=== PATIENT | female | born 1980 | race Caucasian/White ===

== ENCOUNTER 2017-03-22 15:45 | Emergency (ER) | payer OTHER ==
[~2017-03-22] VITALS: Ht 177.8 cm; Wt 120.0 kg
[2017-03-22 15:46] VITALS: BP 191/107; PULSE 95; RESP 23; TEMP 97.9; O2SAT 98
--- NOTE | 2017-03-22 15:52 | PD ---
Physical Exam Time Seen by Provider: 15:50 Narrative 37 y/o female who is 10 weeks presents with 1.5 hrs of vaginal bleeding. Denies pain. Vital signs reviewed. Seen at triage desk. Awaiting bed placement. Data Data Last Documented VS Vital Signs Date Time Temp Pulse Resp B/P Pulse Ox O2 Delivery O2 Flow Rate FiO2 03/22/17 15:46 97.9 95 23 191/107 98 MDM Medical Record Reviewed: Yes Supervised Visit with ALEKSEY: Willis Adkins Mar 22, 2017 15:51
[2017-03-22 16:15] VITALS: BP 138/95
--- NOTE | 2017-03-22 16:29 | PD ---
HPI Chief Complaint: Related Problem Time Seen by Provider: 16:27 Travel History International Travel<30 days: No Contact w/Intl Traveler<30days: No Traveled to known affect area: No History of Present Illness HPI 37-year-old 10 week by ultrasound at 7 weeks female presents to the ED for evaluation of 2 hour history of vaginal bleeding. Patient denies abdominal pain, dysuria, back pain. She states that she was standing up at work when she felt a warm gush, went to the bathroom and had bright red blood in her panties. Unsure of her blood type. States she's never had a RhoGAM shot. LMP 01/09/17. PFSH Past Medical History Hypertension: Yes Respiratory: Yes (ASTHMA) Influenza Vaccination: No ?: LMP: 01/09/2017 : 5 Para: 4 Past Surgical History Other Surgery: Yes (vein striping) Social History Alcohol Use: No Tobacco Use: No Substance Use: No Allergies-Medications (Allergen,Severity, Reaction): Coded Allergies: Amoxicillin (Verified Allergy, Mild, Rash, 03/22/17) Erythromycin (Verified Allergy, Unknown, Rash, 03/22/17) Penicillin (Verified Allergy, Unknown, Rash, 03/22/17) Reported Meds & Prescriptions Reported Meds & Active Scripts Active Macrobid (Nitrofurantoin Monoh/Nitrofur Macro) 100 Mg Cap 100 Mg PO BID 7 Days Review of Systems Except as stated in HPI: all other systems reviewed are Neg Physical Exam Narrative GENERAL: Well-nourished, well-developed obese white female in no acute distress. SKIN: Focused skin assessment warm/dry. HEAD: Normocephalic. EYES: No scleral icterus. No injection or drainage. NECK: Supple, trachea midline. No JVD or lymphadenopathy. CARDIOVASCULAR: Regular rate and rhythm without murmurs, gallops, or rubs. RESPIRATORY: Breath sounds equal bilaterally. No accessory muscle use. GASTROINTESTINAL: Abdomen soft, protuberant, non-tender, nondistended. Active bowel sounds. MUSCULOSKELETAL: No cyanosis, or edema. BACK: Nontender without obvious deformity. No CVA tenderness. Data Data Last Documented VS Vital Signs Date Time Temp Pulse Resp B/P Pulse Ox O2 Delivery O2 Flow Rate FiO2 03/22/17 16:15 138/95 03/22/17 15:46 97.9 95 23 98 Orders Beta Hcg (Quant/Titer) (03/22/17 16:26) Urinalysis - C+S If Indicated (03/22/17 16:26) Ed Urine Pregnancytest Poc (03/22/17 16:26) Ed Poc Ultrasound (03/22/17 16:26) Complete Rh (03/22/17 16:53) Labs Laboratory Tests Test 03/22/17 16:55 Urine Color YELLOW Urine Turbidity CLEAR Urine pH 6.0 Urine Specific [place] 1.018 Urine Protein TRACE mg/dL Urine Glucose (UA) NEG mg/dL Urine Ketones 10 mg/dL Urine Occult Blood MOD Urine Nitrite NEG Urine Bilirubin NEG Urine Urobilinogen LESS THAN 2.0 MG/DL Urine Leukocyte Esterase TRACE Urine RBC LESS THAN 1 /hpf Urine WBC 2 /hpf Urine Squamous Epithelial 1 /hpf Cells Urine Bacteria RARE /hpf Urine Hyaline Casts 3 /lpf Urine Mucus FEW /lpf Microscopic Urinalysis Comment CULT NOT INDICATED Human Chorionic Gonadotropin, 75682 MIU/ML Quant Blood Type A POSITIVE Rho(D) Type POSITIVE MDM Medical Decision Making Medical Screen Exam Complete: Yes Emergency Medical Condition: Yes Differential Diagnosis Vaginal bleeding in first trimester versus threatened versus UTI versus Narrative Course 37-year-old 10 week by ultrasound at 7 weeks female presents to the ED for evaluation of 2 hour history of vaginal bleeding. Patient denies abdominal pain, dysuria, back pain. She states that she was standing up at work when she felt a warm gush, went to the bathroom and had bright red blood in her panties. Unsure of her blood type. States she's never had a RhoGAM shot. LMP 4. Vitals reviewed. Physical exam reveals an obese female in NAD. Abdominal exam is completely benign. Bedside ultrasound reveals single, active intrauterine with heart rate in the 160s. Beta hCG 02/25/07. Blood type A positive. UA trace leukocyte esterase, rare bacteria. This is vaginal bleeding in the first trimester and asymptomatic bacteriuria. Patient' s treated with Macrobid 100 mg twice a day 7 days. She is instructed to return to the ED or her burner shaft for repeat beta hCG in 48-72 hours. Discussed the possibility of spontaneous and the need to return to the ED sooner should her symptoms worsen. Patient indicated understanding of instructions and is agreeable to the care plan. She is stable and discharged home. Procedures Procedure Narrative Emergency Department Pelvic ultrasound was performed with patient consent. The curvilinear probe was used in the transverse and sagittal views within the suprapubic region revealing active, single intrauterine . heart rate was 160s. Diagnosis Primary Impression: Vaginal bleeding in patient at less than 20 weeks gestation Additional Impression: Asymptomatic bacteriuria during in first trimester Referrals: Clinical Technologist Patient Instructions: General Instructions, Threatened Miscarriage (ED), Urinary Tract Infection in (ED) Additional Instructions: Rest, hydrate. Blood type is A+. [place] [address]. Take antibiotic as prescribed. Follow-up in 48-72 hours for redraw of beta hCG. Return to the ED for worsening symptoms or any urgent or emergent medical condition. Scripts Nitrofurantoin Monohydrate Macrocrystals (Macrobid)100 Mg [id number] Mg PO BID 7 Days Ref 0 Prov:Amairani Waller MD 03/22/17 Disposition: 01 DISCHARGE HOME Condition: Stable Aide Alvarado Mar 22, 2017 16:29
--- NOTE | 2017-03-22 16:59 | PD ---
Data Data Last Documented VS Vital Signs Date Time Temp Pulse Resp B/P Pulse Ox O2 Delivery O2 Flow Rate FiO2 03/22/17 16:15 138/95 03/22/17 15:46 97.9 95 23 98 Orders Beta Hcg (Quant/Titer) (03/22/17 16:26) Urinalysis - C+S If Indicated (03/22/17 16:26) Ed Urine Pregnancytest Poc (03/22/17 16:26) Ed Poc Ultrasound (03/22/17 16:26) Complete Rh (03/22/17 16:53) MDM Supervised Visit with ALEKSEY: Yes Narrative Course I, Dr. Waller, have reviewed the advance practice practioner's documentation and am in agreement, met with the patient face to face, made the diagnosis, and the medical decision making was done by me. *My assessment and Findings: 35-year-old at 10 weeks 2 days here with complaint of a single episode of bright red blood per vagina. Patient stood up and had a sudden gush of blood that filled her underwear. She has not had any persistent bleeding or abdominal pain. Abdominal examination is benign, obese. She does not her know her Rh status. Differential includes , ectopic , threatened AB, subchorionic hemorrhage. Bedside ultrasound shows active intrauterine with heart rates in the 160s, please see procedure note. Will obtain beta Quant, Rh and urinalysis and discharged home with outpatient CHINESE INSTRUCTOR follow-up for threatened AB. Procedures Procedure Narrative Emergency Department Pelvic ultrasound was performed with patient consent. The curvilinear probe was used in the transverse and sagittal views within the suprapubic region revealing an active intrauterine . heart rate was 160s Scripts No Active Prescriptions or Reported Meds Amairani Waller MD Mar 22, 2017 16:59
[2017-03-22 17:27] LABS: BACTERIA, URINE RARE /hpf; BLOOD, URINE MOD (NEG); COMMENT (UR) CULT NOT INDICATED; CULTURE IF INDICATED CULT NOT INDICATED; GLUCOSE,URINE NEG (NEG); HYALINE CAST, URINE 3 /lpf (RARE); KETONE, URINE 10 mg/dL (NEG); MUCUS URINE FEW /lpf (OCC); NITRITE,URINE NEG (NEG); SQUAMOUS EPITHELIAL CELL URINE 1 /hpf (0-5); URINE COLOR YELLOW (YELLW/STRAW)
[2017-03-22] MEDS ORDERED: MACR100C2 PO (17:32)
[2017-03-22 17:50] LABS: BETA HCG QUANT 36507 MIU/ML (0-5)
== END 2017-03-22 18:14 | disposition home or self-care (01) ==
LOC: NEPD 15:45
DX: O46.91 Antepartum hemorrhage, unspecified, first trimester (principal); R82.71 Bacteriuria; O16.1 Unspecified maternal hypertension, first trimester; J45.909 Unspecified asthma, uncomplicated; Z79.899 Other long term (current) drug therapy; Z88.0 Allergy status to penicillin; Z3A.10 10 weeks gestation of pregnancy
CPT/HCPCS: 81001; 84702; 84703; 86901; 99284

== ENCOUNTER 2017-04-04 13:45 | Observation (INO) | payer OTHER ==
[~2017-04-04] VITALS: Ht 177.8 cm; Wt 119.5 kg
[~2017-04-04 13:45] MED LIST: MACR100C2 PO
[2017-04-04 13:46] VITALS: BP 159/92; PULSE 98; RESP 20; TEMP 99.1; O2SAT 99
--- NOTE | 2017-04-04 14:27 | PD ---
Physical Exam Time Seen by Provider: 14:26 Narrative 37 y/o female with vaginal bleeding for one day. , 12 weeks egaLisandro Reyes is the obgyn. Vital signs reviewed. Seen at triage desk. Awaiting bed placement. Data Data Last Documented VS Vital Signs Date Time Temp Pulse Resp B/P Pulse Ox O2 Delivery O2 Flow Rate FiO2 04/04/17 13:46 99.1 98 20 159/92 99 Room Air [facility] Medical Record Reviewed: Yes Supervised Visit with ALEKSEY: No Willis Trivedi Apr 04, 2017 14:27
--- NOTE | 2017-04-04 17:09 | PD ---
HPI Chief Complaint: Related Problem Time Seen by Provider: 16:57 Travel History International Travel<30 days: No Contact w/Intl Traveler<30days: No Traveled to known affect area: No History of Present Illness HPI 37-year-old female , approximately 12 weeks , here for evaluation of vaginal bleeding. The patient first noticed some bleeding around 3:00 AM. At around noon she had some heavier bleeding going through 3 pads and noticing large clots. This was preceded by lower abdominal cramping. Currently cramping has resolved. She follows with ETHNOGRAPHIC MATERIALS CONSERVATOR Dr. Reyes and states that she had an ultrasound confirming an IUP with her several weeks ago. She was seen in the emergency Department a couple weeks ago for the same. [facility] Past Medical History Cardiovascular Problems: Yes (HTN) Diminished Hearing: No Hypertension: Yes Respiratory: Yes (ASTHMA) ?: LMP: 01/09/17 : 5 Para: 4 Past Surgical History Other Surgery: Yes (vein striping) Social History Alcohol Use: No Tobacco Use: No Substance Use: No Allergies-Medications (Allergen,Severity, Reaction): Coded Allergies: Amoxicillin (Verified Allergy, Mild, Rash, 04/04/17) Erythromycin (Verified Allergy, Unknown, Rash, 04/04/17) Penicillin (Verified Allergy, Unknown, Rash, 04/04/17) Reported Meds & Prescriptions Reported Meds & Active Scripts Active No Active Prescriptions or Reported Medications Review of Systems Except as stated in HPI: all other systems reviewed are Neg Physical Exam Narrative GENERAL: Well-developed, well-nourished, overweight, no apparent distress. SKIN: Focused skin assessment warm/dry. No pallor HEAD: Atraumatic. Normocephalic. EYES: Pupils equal and round. No scleral icterus. No injection or drainage. ENT: Mucous membranes pink and moist. NECK: Trachea midline. No JVD. CARDIOVASCULAR: Regular rate and rhythm. RESPIRATORY: No accessory muscle use. Clear to auscultation. Breath sounds equal bilaterally. GASTROINTESTINAL: Abdomen soft, nondistended. Mild suprapubic tenderness without peritoneal signs. KICK PLATE INSTALLER: Exam performed in the presence of a female nurse. Normal external genitalia. Small amount of blood in vaginal vault coming from cervical os. No vaginal lacerations. MUSCULOSKELETAL: No obvious deformities. No clubbing. No cyanosis. No edema. NEUROLOGICAL: Awake and alert. No obvious cranial nerve deficits. Motor grossly within normal limits. Normal speech. PSYCHIATRIC: Appropriate mood and affect; insight and judgment normal. Data Data Last Documented VS Vital Signs Date Time Temp Pulse Resp B/P Pulse Ox O2 Delivery O2 Flow Rate FiO2 04/04/17 21:10 83 16 147/86 98 Room Air 04/04/17 13:46 99.1 Orders Beta Hcg (Quant/Titer) (04/04/17 17:06) Complete Blood Count With Diff (04/04/17 17:06) Comprehensive Metabolic Panel (04/04/17 17:06) Urinalysis - C+S If Indicated (04/04/17 17:06) Us Pelvis (Ques Pr/Ect)W Trans (04/04/17 ) Cbc No Diff, Includes Plts (04/04/17 21:21) Labs Laboratory Tests Test 04/04/17 04/04/17 04/04/17 17:20 17:40 21:30 White Blood Count 12.1 TH/MM3 11.3 TH/MM3 Red Blood Count 4.69 MIL/MM3 4.32 MIL/MM3 Hemoglobin 12.5 GM/DL 11.7 GM/DL Hematocrit 38.3 % 35.1 % Mean Corpuscular Volume 81.6 FL 81.2 FL Mean Corpuscular Hemoglobin 26.6 PG 27.0 PG Mean Corpuscular Hemoglobin 32.6 % 33.2 % Concent Red Cell Distribution Width 13.9 % 14.4 % Platelet Count 272 TH/MM3 279 TH/MM3 Mean Platelet Volume 8.0 FL 8.0 FL Neutrophils (%) (Auto) 72.2 % Lymphocytes (%) (Auto) 19.9 % Monocytes (%) (Auto) 6.7 % Eosinophils (%) (Auto) 0.9 % Basophils (%) (Auto) 0.3 % Neutrophils # (Auto) 8.8 TH/MM3 Lymphocytes # (Auto) 2.4 TH/MM3 Monocytes # (Auto) 0.8 TH/MM3 Eosinophils # (Auto) 0.1 TH/MM3 Basophils # (Auto) 0.0 TH/MM3 CBC Comment DIFF FINAL Differential Comment Sodium Level 140 MEQ/L Potassium Level 3.3 MEQ/L Chloride Level 108 MEQ/L Carbon Dioxide Level 23.0 MEQ/L Anion Gap 9 MEQ/L Blood Urea Nitrogen 7 MG/DL Creatinine 0.57 MG/DL Estimat Glomerular Filtration 119 ML/MIN Rate Random Glucose 85 MG/DL Calcium Level 8.5 MG/DL Total Bilirubin 0.3 MG/DL Aspartate Amino Transf 10 U/L (AST/SGOT) Alanine Aminotransferase 16 U/L (ALT/SGPT) Alkaline Phosphatase 51 U/L Total Protein 7.5 GM/DL Albumin 3.3 GM/DL Human Chorionic Gonadotropin, 32554 MIU/ML Quant Urine Color YELLOW Urine Turbidity CLEAR Urine pH 6.0 Urine Specific [place] 1.025 Urine Protein 30 mg/dL Urine Glucose (UA) NEG mg/dL Urine Ketones 40 mg/dL Urine Occult Blood LARGE Urine Nitrite NEG Urine Bilirubin NEG Urine Urobilinogen LESS THAN 2.0 MG/DL Urine Leukocyte Esterase TRACE Urine RBC /hpf Urine WBC 5 /hpf Urine Squamous Epithelial 1 /hpf Cells Urine Amorphous Sediment RARE Urine Mucus FEW /lpf Microscopic Urinalysis Comment CULT NOT INDICATED MDM Medical Decision Making Medical Screen Exam Complete: Yes Emergency Medical Condition: Yes Differential Diagnosis Threatened , spontaneous , missed , ectopic Narrative Course Initial vital signs show heart rate 98, blood pressure 159/92, pulse ox 99% on room air, oral temp of 99.1F. CBC shows WBC 12.1, hemoglobin 12.5, hematocrit 38.3, platelets 272. CMP shows potassium 3.3, chloride 108, otherwise unremarkable. Beta hCG is 28,864. UA shows large occult blood, 40 ketones, trace leukocyte esterase, innumerable rbc's, negative nitrites, no bacteria, not suggestive of UTI. Blood type from previous visit is A+. Pelvic ultrasound: CONCLUSION: Small subchorionic hemorrhage and inhomogeneous placenta uterus junction with hypoechogenicity as above may represent retroplacental hemorrhage and possibility of abruptio placenta is not excluded and clinical correlation is recommended. Case discussed with ETHNOGRAPH[employer] MAT[employer]S CONSERVATOR Dr. Villatoro who is covering for the patient's ETHNOGRAPHIC MATERIALS CONSERVATOR Dr. Reyes. While in the emergency department the patient had passed a large blood clot from her vagina while in the restroom. Exam after this shows a closed cervix with small amount of blood in the vaginal vault coming from the cervix. No intravaginal lacerations. Patient has remained hemodynamically stable while in the emergency department. At this point the plan is to repeat the patient's CBC. If there has been a significant change, then the patient will be observed overnight for repeat H&H in the morning. Initial hemoglobin was 12.5. Repeat hemoglobin about 4 hours after the first is 11.7. Case again discussed with ETHNOGRAPHIC MATERIALS CONSERVATOR Dr. Villatoro. The patient will be admitted for overnight observation for repeat CBC as well as ultrasound in the morning. Patient will be admitted to Dr. Reyes's service. Patient was made aware of all findings and she is amenable to this plan. Diagnosis Primary Impression: Threatened Additional Impression: Episode of heavy vaginal bleeding Admitting Information Admitting Physician Requests: Observation Scripts No Active Prescriptions or Reported Meds Ferny Clarke MD Apr 04, 2017 17:09
[2017-04-04 17:51] LABS: AUTOMATED NEUTROPHIL # 8.8 TH/MM3 (1.8-7.7); BASOPHIL % 0.3 % (0.0-2.0); EOSINOPHIL # 0.1 TH/MM3 (0-0.4); EOSINOPHIL % 0.9 % (0.0-4.0); HEMATOCRIT 38.3 % (35.0-46.0); HEMO FLAGS DIFF FINAL; LYMPH % 19.9 % (9.0-44.0); LYMPHOCYTE # 2.4 TH/MM3 (1.0-4.8); MEAN CELL VOLUME 81.6 FL (80.0-100.0); MEAN CORPUSCULAR HEMOGLOBIN 26.6 PG (27.0-34.0); MEAN CORPUSCULAR HGB CONC 32.6 % (32.0-36.0); MONO % 6.7 % (0.0-8.0); NEUT % 72.2 % (16.0-70.0); PLATELET COUNT 272 TH/MM3 (150-450); RED BLOOD COUNT 4.69 MIL/MM3 (4.00-5.30); RED CELL DISTRIBUTION WIDTH 13.9 % (11.6-17.2); WHITE BLOOD COUNT 12.1 TH/MM3 (4.0-11.0)
[2017-04-04 18:03] LABS: BLOOD, URINE LARGE (NEG); COMMENT (UR) CULT NOT INDICATED; CULTURE IF INDICATED CULT NOT INDICATED; GLUCOSE,URINE NEG (NEG); KETONE, URINE 40 mg/dL (NEG); MUCUS URINE FEW /lpf (OCC); NITRITE,URINE NEG (NEG); SQUAMOUS EPITHELIAL CELL URINE 1 /hpf (0-5); URINE COLOR YELLOW (YELLW/STRAW)
[2017-04-04 18:08] LABS: ALT (GPT) 16 U/L (10-53); ANION GAP 9 MEQ/L (5-15); AST (GOT) 10 U/L (15-37); BLOOD UREA NITROGEN 7 MG/DL (7-18); CHLORIDE 108 MEQ/L (98-107); GLOMERULAR FILTRATION RATE 119 ML/MIN (>89); POTASSIUM 3.3 MEQ/L (3.5-5.1); SODIUM (NA) 140 MEQ/L (136-145)
[2017-04-04 18:24] LABS: ALKALINE PHOSPHATASE 51 U/L (45-117); BETA HCG QUANT 28864 MIU/ML (0-5); TOTAL BILIRUBIN ADULT 0.3 MG/DL (0.2-1.0)
--- NOTE | 2017-04-04 20:57 | RADRPT ---
EXAM DATE/TIME: 04/04/2017 18:44 [place] COMPARISON: No previous studies available for comparison. INDICATIONS : Heavy vaginal bleeding during . LAB(S): Beta-hC MEDICAL HISTORY : Hypertension. . SURGICAL HISTORY : Left ankle surgery. Vein stripping surgery. ENCOUNTER: Initial ACUITY: 1 day PAIN SCORE: 0/10 LOCATION: Bilateral pelvis MEASUREMENTS: UTERUS: 13.1 x 10.8 x 8.5 cm CROWN RUMP LENGTH: 5.6 cm = 12 WKS 1 DAYS FHR: 163 BPM FINDINGS: Intrauterine is present review of heart 163 beats per minute. There is an approximate 1.6 c m on chronic hemorrhage. There is irregularity of the junction of the placenta and the uterus with hy poechogenicity at this site and possibility of retroplacental hemorrhage should also be entertained. Clear placenta abruption is not identified, however this could be early stages of the abruptio placen ta. The adnexa is unremarkable. CONCLUSION: Small subchorionic hemorrhage and inhomogeneous placenta uterus junction with hypoechogenicity as abo ve may represent retroplacental hemorrhage and possibility of abruptio placenta is not excluded and c linical correlation is recommended. Ayana Navarro MD on April 04, 2017 at 20:42 Board Certified Radiologist. This report was verified electronically.
[2017-04-04 21:10] VITALS: BP 147/86; PULSE 83; RESP 16; O2SAT 98
[2017-04-04 21:52] LABS: HEMATOCRIT 35.1 % (35.0-46.0); MEAN CELL VOLUME 81.2 FL (80.0-100.0); MEAN CORPUSCULAR HGB CONC 33.2 % (32.0-36.0); PLATELET COUNT 279 TH/MM3 (150-450); RED BLOOD COUNT 4.32 MIL/MM3 (4.00-5.30); RED CELL DISTRIBUTION WIDTH 14.4 % (11.6-17.2); REVIEW FLAG FINAL; WHITE BLOOD COUNT 11.3 TH/MM3 (4.0-11.0)
[2017-04-04] MEDS ORDERED: SODIUM CHLORIDE 0.9% FLUSH 10 ML FLUSH IVF PRN (22:15)
[2017-04-04 22:40] VITALS: O2SAT 98
[2017-04-05] VITALS: BP 128/74; PULSE 68; RESP 21; TEMP 97.8; O2SAT 98
[2017-04-05 05:01] VITALS: BP 136/67; PULSE 79; RESP 18; TEMP 97.9; O2SAT 97
[2017-04-05] MEDS ORDERED: ACETAMIN 325 MG/BUTALBITAL 50 MG/CAFFEINE 40 MG TAB PO ONE (06:30)
[2017-04-05 07:30] LABS: AUTOMATED NEUTROPHIL # 5.3 TH/MM3 (1.8-7.7); BASOPHIL % 0.2 % (0.0-2.0); EOSINOPHIL # 0.1 TH/MM3 (0-0.4); EOSINOPHIL % 1.7 % (0.0-4.0); HEMATOCRIT 34.9 % (35.0-46.0); HEMO FLAGS DIFF FINAL; LYMPH % 25.4 % (9.0-44.0); LYMPHOCYTE # 2.1 TH/MM3 (1.0-4.8); MEAN CELL VOLUME 81.3 FL (80.0-100.0); MEAN CORPUSCULAR HEMOGLOBIN 27.1 PG (27.0-34.0); MEAN CORPUSCULAR HGB CONC 33.4 % (32.0-36.0); NEUT % 64.7 % (16.0-70.0); PLATELET COUNT 258 TH/MM3 (150-450); RED CELL DISTRIBUTION WIDTH 14.5 % (11.6-17.2); WHITE BLOOD COUNT 8.2 TH/MM3 (4.0-11.0)
[2017-04-05 07:58] VITALS: BP 140/85; PULSE 83; RESP 19; TEMP 98; O2SAT 98
[2017-04-05] MEDS ORDERED: SODIUM CHLORIDE 0.9% FLUSH 10 ML FLUSH IV FLUSH SCH (09:00)
[2017-04-05 11:34] VITALS: BP 173/96; PULSE 91; RESP 18; TEMP 98; O2SAT 98
--- NOTE | 2017-04-05 12:42 | HHI.DCPOC ---
Discharge Care Plan Your Health Problems Are: Vaginal bleeding Report Symptoms to Your Doctor -Temperature above 100.5 degrees -Redness, of incision or excessive or foul smelling drainage -Unusual pain or calf pain -Increased vaginal bleeding -Painful or difficulty urinating -Feelings of extreme sadness or anxiety after 2 weeks Goals to Promote Your Health * To prevent worsening of your condition and complications * To maintain your health at the optimal level Directions to Meet Your Goals Take your medications as prescribed Follow your dietary instruction Follow activity as directed Ensure plenty of rest for recovery Drink fluids for hydration Keep your appointments as scheduled Take your immunizations and boosters as scheduled If your symptoms worsen call your PCP, if no PCP go to Urgent Care Center or Emergency Room Smoking is Dangerous to Your Health. Avoid second hand smoke Call the 24-hour crisis hotline for domestic abuse at Hortensia Argueta MD Apr 05, 2017 12:42
== END 2017-04-05 16:14 | disposition home or self-care (01) ==
LOC: NEPD 13:45 → NEDA 22:09 → NEPFCDU 23:51 → HCIS 04-05 10:23 → NEPFCDU 04-05 10:24
PROVIDERS: ADMIT Obstetrics & Gynecology; ATTEND Obstetrics & Gynecology
DX: O20.0 Threatened abortion (principal); Z3A.12 12 weeks gestation of pregnancy; O09.521 Supervision of elderly multigravida, first trimester; O16.1 Unspecified maternal hypertension, first trimester; J45.909 Unspecified asthma, uncomplicated
CPT/HCPCS: 76700; 76801; 76817; 80053; 81001; 84702; 85025; 85027; 99285; G0378

== ENCOUNTER 2017-05-11 12:50 | Emergency (ER) | payer OTHER ==
[2017-05-11 13:08] VITALS: BP 144/90; PULSE 111; RESP 20; TEMP 97.8
[2017-05-11 13:28] VITALS: BP 144/90; PULSE 111; RESP 20; TEMP 97.8
--- NOTE | 2017-05-11 13:45 | PD ---
HPI Chief Complaint 17 weeks and 2 days Abdominal pain Date Seen: May 11, 2017 Time Seen: 13:20 Travel History International Travel<30 Days: No Contact w/Intl Traveler<30Days: No Known Affected Area: No History of Present Illness HPI Pt is a 37 yo with EDC 10-17-2017. Pt presents with sudden onset of periumbilical pain starting at 09:00. pain comes in waves, lasting a few minutes. Admits to some nausea. No vaginal bleeding. Pt has a subchorionic hematoma. PIH on Labetalol. Denies any headaches or vision changes. Para: 4 : 5 Miscarriage: 0 : 0 History Past Medical History Narrative Medical PIH Subchorionic hematoma Past Surgical History Surgical History: No Previous Surgery Family History Family History: Negative Social History Alcohol Use: No Tobacco Use: No Substance Abuse: No Allergies-Medications (Allergen,Severity, Reaction): Coded Allergies: amoxicillin (Unverified Allergy, Mild, Rash, 05/07/17) erythromycin base (Unverified Allergy, Unknown, Rash, 05/07/17) penicillin G (Unverified Allergy, Unknown, Rash, 05/07/17) Home Meds Active Scripts Hydrocodone-Acetaminophen (Lortab)5-325 Mg Tab1 Tab PO Q6H PRN (PAIN) #15 TAB Ref 0 Prov:Fredrick Suarez MD 05/11/17 Narrative Medication Labetalol 200mg PO BID Review of Systems Except as stated in HPI: all other systems reviewed are Neg Physical Exam Vital Signs Date Time Temp Pulse Resp B/P Pulse Ox O2 Delivery O2 Flow Rate FiO2 05/11/17 13:28 97.8 111 20 144/90 05/11/17 13:08 97.8 111 20 144/90 Narrative GENERAL: Well-nourished, well-developed patient. SKIN: Warm and dry. HEAD: Normocephalic and atraumatic. EYES: No scleral icterus. No injection or drainage. ENT: No nasal drainage noted. Mucous membranes pink. Airway patent. NECK: Supple, trachea midline. No JVD. CARDIOVASCULAR: Regular rate and rhythm without murmurs, gallops, or rubs. RESPIRATORY: Breath sounds equal bilaterally. No accessory muscle use. BREASTS: Bilateral exam showed no masses , no retractions, no nipple discharge. ABDOMEN/GI: Abdomen soft, tender at periumbical area, no guarding, no rebound, bowel sounds present, no epigastric or suprapubic pain Gravid to [18] weeks size Fundal Height: [18] GENITOURINARY: External Genitalia: intact and normal in appearance BUS glands: [-] Cervix: [-] Dilatation: [-] Effacement: [-] Station: [-] Presentation: [-] Membranes: [intact or ruptured] Uterine Contractions: [-] FHT's: Category: [-] Baseline: [-] Reactive: [-] Variability: [-] Decels: [-] EXTREMITIES: No cyanosis or edema. BACK: Nontender without obvious deformity. No CVA tenderness. NEUROLOGICAL: Awake and alert. Motor and sensory grossly within normal limits. Five out of 5 muscle strength in all muscle groups. Normal speech. Data Data Vital Signs Reviewed: Yes Orders Vital Signs (Adult) .ON ADMISSION (05/11/17 13:31) ^ Labor Status (05/11/17 13:31) Urinalysis - C+S If Indicated (05/11/17 13:31) Cbc No Diff, Includes Plts (05/11/17 13:31) Alt (Sgpt) (05/11/17 13:34) Amylase (05/11/17 13:34) Ast (Sgot) (05/11/17 13:34) Lipase (05/11/17 13:34) MDM Medical Record Reviewed: Yes Interpretation(s) Pt reporting periumbilical pain. H/o chorionic hematoma. No vaginal bleeding. US does not show an expanding hematoma. Active movements seen on US Plan Discharge home. FU with provider in office within the week Diagnosis Diagnosis: Primary Impression: Abdominal pain during in second trimester Additional Impression: Subchorionic hematoma in second trimester Qualified Code: O41.8X20 - Subchorionic hematoma in second trimester, single or unspecified fetus Disposition: DISCHARGE HOME (Told to follow-up with provider within one week. call with any vaginal bleeding or worsening pain despite analgesia) Scripts Hydrocodone-Acetaminophen (Lortab)5-325 Mg Tab1 Tab PO Q6H PRN (PAIN) #15 TAB Ref 0 Prov:Fredrick Suarez MD 05/11/17 Fredrick Suarez MD May 11, 2017 13:45
[2017-05-11] MEDS ORDERED: ONDANSETRON HCL 4 MG/2 ML VIAL IV PUSH ONE (14:00)
[2017-05-11] MEDS ORDERED: LACTATED RINGER'S 1000 ML INJ 1,000 ML IV ONE (14:00)
[2017-05-11 14:16] LABS: BACTERIA, URINE OCC /hpf; BLOOD, URINE MOD (NEG); COMMENT (UR) CULT NOT INDICATED; CULTURE IF INDICATED CULT NOT INDICATED; GLUCOSE,URINE NEG (NEG); HYALINE CAST, URINE 2 /lpf (RARE); KETONE, URINE 40 mg/dL (NEG); MUCUS URINE FEW /lpf (OCC); NITRITE,URINE NEG (NEG); PH, URINE 6.5 (5.0-8.5); SQUAMOUS EPITHELIAL CELL URINE 14 /hpf (0-5); URINE COLOR YELLOW (YELLW/STRAW)
[2017-05-11 14:22] LABS: HEMATOCRIT 35.9 % (35.0-46.0); MEAN CELL VOLUME 81.2 FL (80.0-100.0); MEAN CORPUSCULAR HEMOGLOBIN 27.5 PG (27.0-34.0); MEAN CORPUSCULAR HGB CONC 33.8 % (32.0-36.0); PLATELET COUNT 291 TH/MM3 (150-450); RED BLOOD COUNT 4.42 MIL/MM3 (4.00-5.30); REVIEW FLAG FINAL; WHITE BLOOD COUNT 13.6 TH/MM3 (4.0-11.0)
[2017-05-11 14:31] LABS: ALT (GPT) 12 U/L (10-53); AMYLASE 54 U/L (25-115); AST (GOT) 9 U/L (15-37)
[2017-05-11 14:50] VITALS: BP 149/104; PULSE 102
[2017-05-11] MEDS ORDERED: HYDROmorphone HCL PF 1 MG/ML VIAL SQ ONE (15:00)
[2017-05-11 15:12] VITALS: BP 152/87; PULSE 102
[2017-05-11 15:15] VITALS: BP 131/74; PULSE 101
[2017-05-11] MEDS ORDERED: HYDROmorphone HCL PF 1 MG/ML VIAL IV PUSH ONE (15:15)
[2017-05-11] MEDS ORDERED: HYDR-3533 PO (15:57)
[2017-05-16 11:55] LABS: BATH SALTS (MDPV) UR NEG (NEG); ECSTASY (MDMA) UR NEG (NEG); GABAPENTIN UR NEG (NEG); HEROIN (6-ACETYLMORPHINE) UR NEG (NEG); HYDROMORPHONE U NEG (NEG); K2 SPICE UR NEG (NEG); OBMETHADONE UR NEG (NEG); PHENCYCLIDINE URINE NEG (NEG)
== END 2017-05-11 17:36 | disposition home or self-care (01) ==
LOC: HOBED 12:50
DX: O26.92 Pregnancy related conditions, unspecified, second trimester (principal); O46.8X2 Other antepartum hemorrhage, second trimester; Z3A.17 17 weeks gestation of pregnancy
CPT/HCPCS: 76816; 80307; 81001; 82150; 83690; 84450; 84460; 85027; 96361; 96374; 99285; G0481; J2405; J7120

== ENCOUNTER 2017-10-11 05:10 | Inpatient (IN) | payer OTHER ==
[~2017-10-11] VITALS: Ht 177.8 cm; Wt 118.4 kg
[2017-10-11] VITALS (153 sets, daily range): BP systolic 105–157; BP diastolic 47–102; PULSE 74–119; RESP 16–20; TEMP 98–99; O2SAT 95
[~2017-10-11 05:10] MED LIST changes: +HYDR-3533 PO; -MACR100C2 PO
[2017-10-11] MEDS ORDERED: PREN1PAK9 PO (05:38)
[2017-10-11] MEDS ORDERED: LABE200T2 PO (05:38)
[2017-10-11] MEDS ORDERED: LIDOCAINE HCL 1% 50 ML VIAL I-DERMAL PRN (05:45)
[2017-10-11] MEDS ORDERED: NS 500 ML BOLUS IV PRN (05:45)
[2017-10-11] MEDS ORDERED: OXYTOCIN 30 UNITS/NS 500ML PREMIX IV PRN (05:45)
[2017-10-11] MEDS ORDERED: ONDANSETRON HCL 4 MG/2 ML VIAL IV PUSH PRN (05:45)
[2017-10-11] MEDS ORDERED: CITRIC ACID-SODIUM CITRATE LIQ 30 ML UDC PO SCH (05:45)
[2017-10-11] MEDS ORDERED: OXYTOCIN 30 UNITS 500ML PREMIX IV ONE (05:45)
[2017-10-11] MEDS ORDERED: NS 1000 ML IV PRN (05:45)
[2017-10-11] MEDS ORDERED: LACTATED RINGER'S 1000 ML BOLUS IV PRN (05:45)
[2017-10-11] MEDS ORDERED: LIDOCAINE HCL 1% 50 ML VIAL INFIL PRN (05:45)
[2017-10-11] MEDS ORDERED: MINERAL OIL 10 ML VIAL TOPICAL PRN (05:45)
[2017-10-11] MEDS: LACTATED RINGER'S 1000 ML IV SCH ×2 (05:59→10:52)
[2017-10-11 06:08] LABS: BASOPHIL % 0.2 % (0.0-2.0); EOSINOPHIL # 0.2 TH/MM3 (0-0.4); EOSINOPHIL % 1.6 % (0.0-4.0); HEMATOCRIT 33.5 % (35.0-46.0); HEMOGLOBIN 11.1 GM/DL (11.6-15.3); LYMPH % 23.4 % (9.0-44.0); LYMPHOCYTE # 2.5 TH/MM3 (1.0-4.8); MEAN CELL VOLUME 72.6 FL (80.0-100.0); MEAN PLATELET VOLUME 7.7 FL (7.0-11.0); MONO % 7.7 % (0.0-8.0); MONOCYTE # 0.8 TH/MM3 (0-0.9); NEUT % 67.1 % (16.0-70.0); PLATELET COUNT 361 TH/MM3 (150-450); RED BLOOD COUNT 4.62 MIL/MM3 (4.00-5.30); RED CELL DISTRIBUTION WIDTH 17.4 % (11.6-17.2); WHITE BLOOD COUNT 10.5 TH/MM3 (4.0-11.0)
[2017-10-11 06:17] LABS: BACTERIA, URINE RARE /hpf; BILIRUBIN, URINE NEG (NEG); BLOOD, URINE NEG (NEG); GLUCOSE,URINE NEG (NEG); KETONE, URINE NEG (NEG); MUCUS URINE FEW /lpf (OCC); NITRITE,URINE NEG (NEG); SQUAMOUS EPITHELIAL CELL URINE 31 /hpf (0-5); URINE COLOR YELLOW (YELLW/STRAW); URINE LEUKOCYTE ESTERASE MOD (NEG)
[2017-10-11] MEDS ORDERED: ePHEDrine/NS 25 MG/5 ML SYRINGE ONE (09:45)
[2017-10-11] MEDS ORDERED: fentaNYL 2MCG-BUPIV 0.125% INJ 100 ML ONE (09:45)
[2017-10-11] MEDS ORDERED: NO SYSTEM NARCOTICS PRN (11:45)
[2017-10-11] MEDS ORDERED: ePHEDrine/NS 25 MG/5 ML SYRINGE IV PUSH PRN (11:45)
[2017-10-11] MEDS ORDERED: DO NOT ADMINISTER ANTICOAGULANTS PRN (11:45)
[2017-10-11] MEDS ORDERED: fentaNYL 2MCG-BUPIV 0.125% 100 ML EPIDURAL SCH (11:45)
[2017-10-11] MEDS ORDERED: DIPHTH/TETANUS/ACEL PERTUSSIS (BOOSTER) 0.5 ML VIAL/PFS IM ONE (16:00)
[2017-10-11] MEDS ORDERED: MEASLES, MUMPS, RUBELLA VACCINE 0.5 ML VIAL SQ ONE (16:00)
--- NOTE | 2017-10-11 17:44 | PD.OB.DELI ---
Weeks gestation: 39 Gest age assessed date: Oct 11, 2017 Gest age assessed time: 05:00 Pt started active labor?: No Medical induction of labor?: Yes Medical induction start date: Oct 11, 2017 Medical induction start time: 05:00 Artificial rupture of membrane: Yes Artificial ROM date: Oct 11, 2017 Artifical ROM time: 08:15 Anesthesia: Epidural Episiotomy: None Vaginal Delivery: Normal Presentation: Occiput anterior Nuchal Cord: x2 Delayed cord clamping (45 sec): No Infant: Male, Single Delivery date: Oct 11, 2017 Delivery time: 17:35 One Minute : 7 Five Minute : 9 Weight: 8-11 Placenta: Spontaneous delivery Estimated blood loss: 300 Hortensia Argueta MD Oct 11, 2017 17:44
[2017-10-11] MEDS ORDERED: BENZOCAINE 20% TOPICAL SPRAY 60 ML CAN TOPICAL PRN (17:45)
[2017-10-11] MEDS ORDERED: DOCUSATE SODIUM 50 MG/SENNA 8.6 MG TAB PO PRN (17:45)
[2017-10-11] MEDS ORDERED: ALUMINUM/MAGNESIUM/SIMETH 30 ML CUP PO PRN (17:45)
[2017-10-11] MEDS ORDERED: ONDANSETRON ODT 4 MG TAB PO PRN (17:45)
[2017-10-11] MEDS ORDERED: ZOLPIDEM TARTRATE 5 MG TAB PO PRN (17:45)
[2017-10-11] MEDS ORDERED: ACETAMINOPHEN 325 MG TAB PO PRN (17:45)
[2017-10-11] MEDS ORDERED: SODIUM CHLORIDE 0.9% FLUSH 10 ML FLUSH IV FLUSH PRN (17:45)
[2017-10-11] MEDS ORDERED: OXYTOCIN 30 UNITS-500ML PREMIX 500 ML IV SCH (17:45)
[2017-10-11] MEDS ORDERED: WITCH HAZEL 50%/GLYCERIN 12.5% 40 PAD JAR TOPICAL PRN (17:45)
[2017-10-11] MEDS: IBUPROFEN 800 MG TAB PO PRN (18:29)
[2017-10-11] MEDS ORDERED: SODIUM CHLORIDE 0.9% FLUSH 10 ML FLUSH IV FLUSH SCH (21:00)
[2017-10-12] MEDS: IBUPROFEN 800 MG TAB PO PRN ×3 (04:48→21:35)
[2017-10-12 08:00] VITALS: BP 138/79; PULSE 85; RESP 18; TEMP 97.7; O2SAT 98
--- NOTE | 2017-10-12 15:02 | HHI.DCPOC ---
Discharge Care Plan Diagnosis: (1) Term delivered (2) term Report Symptoms to Your Doctor -Temperature above 100.5 degrees -Redness, of incision or excessive or foul smelling drainage -Unusual pain or calf pain -Increased vaginal bleeding -Painful or difficulty urinating -Feelings of extreme sadness or anxiety after 2 weeks Goals to Promote Your Health * To prevent worsening of your condition and complications * To maintain your health at the optimal level Directions to Meet Your Goals Take your medications as prescribed Follow your dietary instruction Follow activity as directed Ensure plenty of rest for recovery Drink fluids for hydration Keep your appointments as scheduled Take your immunizations and boosters as scheduled If your symptoms worsen call your PCP, if no PCP go to Urgent Care Center or Emergency Room Smoking is Dangerous to Your Health. Avoid second hand smoke Call the 24-hour crisis hotline for domestic abuse at Hortensia Argueta MD Oct 12, 2017 15:02
--- NOTE | 2017-10-12 15:04 | HHI.OB ---
Subjective Post Day: 1 Remarks Pt doing well Objective Vitals/I&O Vital Signs Date Time Temp Pulse Resp B/P (MAP) Pulse Ox O2 Delivery O2 Flow Rate FiO2 10/12/17 08:00 85 138/79 (98) 10/12/17 08:00 97.7 18 98 10/11/17 21:35 105 132/74 (93) 10/11/17 21:35 98.2 20 95 10/11/17 20:09 98.1 10/11/17 20:09 18 10/11/17 20:01 107 137/76 (96) 10/11/17 19:46 108 135/73 (93) 10/11/17 19:15 100 144/74 (97) 10/11/17 19:00 95 18 134/83 (100) 10/11/17 18:45 17 10/11/17 18:45 92 132/77 (95) 10/11/17 18:30 92 124/72 (89) 10/11/17 18:27 18 10/11/17 18:15 91 18 120/74 (89) 10/11/17 18:00 99 138/78 (98) 10/11/17 18:00 17 10/11/17 17:56 108 137/80 (99) 10/11/17 17:45 18 10/11/17 17:45 98.8 10/11/17 17:45 99.0 10/11/17 17:40 111 130/63 (85) 10/11/17 17:30 18 10/11/17 17:15 87 17 134/84 (101) 10/11/17 17:03 18 10/11/17 17:01 87 134/75 (94) 10/11/17 17:00 16 10/11/17 16:45 90 18 136/80 (98) 10/11/17 16:30 86 132/79 (96) 10/11/17 16:16 76 129/77 (94) 10/11/17 16:15 98.4 10/11/17 16:15 17 10/11/17 16:01 83 134/78 (96) 10/11/17 16:00 18 10/11/17 15:45 87 111/65 (80) 10/11/17 15:31 87 125/64 (84) 10/11/17 15:30 17 10/11/17 15:16 86 122/61 (81) 10/11/17 15:14 18 Objective Remarks GENERAL: Well-nourished, well-developed patient. CARDIOVASCULAR: Regular rate and rhythm without murmurs, gallops, or rubs. RESPIRATORY: Breath sounds equal bilaterally. No accessory muscle use. ABDOMEN/GI: Abdomen soft, non-tender. Fundus: Firm, non-tender at umbilicus. GENITOURINARY: Light to moderate bleeding. EXTREMITIES: No cyanosis or edema, non-tender, without signs of DVT. Medications and IVs Current Medications Medications (Trade) Dose Ordered Sig/Wagner Route Start Time Stop Time Status Last Admin Fentanyl/ Bupivacaine HCl 100 ml @ 0 mls/hr TITRATE EPIDURAL 10/11/17 11:45 10/11/17 17:03 (NS Flush) 2 ml BID IV FLUSH 10/11/17 21:00 (NS Flush) 2 ml UNSCH PRN IV FLUSH 10/11/17 17:45 (Tylenol) 650 mg Q4H PRN PO 10/11/17 17:45 (Motrin) 800 mg Q8H PRN PO 10/11/17 17:45 10/12/17 12:54 (Americaine 20% Top Spr) 1 spray Q4H PRN TOPICAL 10/11/17 17:45 (Tucks Pads) 1 applic QID PRN TOPICAL 10/11/17 17:45 (Jodi-Colace) 2 tab Q12H PRN PO 10/11/17 17:45 (Ambien) 5 mg HS PRN PO 10/11/17 17:45 (Mag-Al Plus Susp Liq) 15 ml Q8H PRN PO 10/11/17 17:45 (Zofran Odt) 4 mg Q6H PRN PO 10/11/17 17:45 Assessment/Plan Assessment and Plan PPD # 1 s/p at 39+wks with htn well controlled now not on meds doing well Discharge Planning plan for discharge in Hortensia Zuñiga MD Oct 12, 2017 15:04
--- NOTE | 2017-10-12 15:05 | HHI.DS ---
Admission Date Oct 11, 2017 at 05:22 Discharge Date: Oct 13, 2017 Admitting Diagnosis IUP at 39 wks with HTN for induction Diagnosis: Delivery Date: Oct 11, 2017 Vaginal Delivery: Normal : Male, Single Pt Condition on Discharge: Good Discharge Disposition: Discharge Home Discharge Instructions Diet Instructions: As Tolerated, No Restrictions Activities You Can Perform: Pelvic Rest Hortensia Argueta MD Oct 12, 2017 15:05
[2017-10-12 19:30] VITALS: BP 150/89; PULSE 78; RESP 18; TEMP 98.3; O2SAT 98
[2017-10-12 23:30] VITALS: BP 140/96; PULSE 83; RESP 18
[2017-10-13 05:45] VITALS: BP 152/90; PULSE 85; RESP 18
[2017-10-13] MEDS: IBUPROFEN 800 MG TAB PO PRN (05:54)
[2017-10-13 07:40] VITALS: BP 149/89; PULSE 83; RESP 16; TEMP 97.9
[2017-10-16] MEDS ORDERED: LABE200T2 PO ×2 (18:23→21:09)
[2017-10-16] MEDS ORDERED: MACR100C2 PO (22:14)
== END 2017-10-13 10:45 | disposition home or self-care (01) | DRG 775 ==
LOC: HOBED 05:10 → H2EB 05:22 → H1EA 20:28
PROVIDERS: ADMIT Obstetrics & Gynecology; ATTEND Obstetrics & Gynecology
PROC: 10E0XZZ Delivery of Products of Conception, External Approach (ICD-10-PCS; principal; 2017-10-11)
PROC: 3E033VJ Introduction of Other Hormone into Peripheral Vein, Percutaneous Approach (ICD-10-PCS; 2017-10-11)
PROC: 10907ZC Drainage of Amniotic Fluid, Therapeutic from Products of Conception, Via Natural or Artificial Opening (ICD-10-PCS; 2017-10-11)
DX: O69.81X0 Labor and delivery complicated by cord around neck, without compression, not applicable or unspecified (principal); O16.4 Unspecified maternal hypertension, complicating childbirth; Z37.0 Single live birth; Z3A.39 39 weeks gestation of pregnancy
CPT/HCPCS: 59025; 80307; 81001; 85025; 86850; 86900; 86901; 90715; J2590; J3010; J7030; J7120

== ENCOUNTER → 2017-12-31 | Outpatient (CLI) | payer OTHER ==
[~2017-12-31] MED LIST changes: -HYDR-3533 PO; +LABE200T2 PO; +MACR100C2 PO; +SINCALIDE 5 MCG/5 ML VIAL IV ONE
--- NOTE | 2017-12-31 14:30 | RADRPT ---
EXAM DATE/TIME: 12/31/2017 10:41 [facility] COMPARISON: No previous studies available for comparison. INDICATIONS : Abdominal pain. DOSE: 4.1 mCi Tc99m Mebrofenin IV MEDICATION: 2.1 mcg Cholecystokinin IV; No symptomatic response. Cholecystokinin was administered by slow infusion over 8 minutes beginning at 60 minutes. MEDICAL HISTORY : Hypertension. SURGICAL HISTORY : Left ankle. ENCOUNTER: Initial ACUITY: 1 week PAIN SCALE: 3/10 LOCATION: Right upper quadrant TECHNIQUE: Following the intravenous administration of radiotracer, dynamic sequential image were performed with continuous acquisition. Time-activity curves were generated. FINDINGS: HEPATIC KINETICS: There is prompt uptake of radiotracer in the liver. No focal defects are seen. There is normal rate of washout from the hepatic parenchyma. BILIARY CLEARANCE: Activity is first seen in the extrahepatic biliary system at 30 minutes. There is normal excretion i nto the small bowel. GALLBLADDER: Activity is first seen in the gallbladder at 15 minutes. POST CHOLECYSTOKININ: After Cholecystokinin administration, there is prompt emptying of the gallbladder with a 35 % ejectio n fraction. Common bile duct kinetics are normal and there is no evidence of biliary obstruction. BILIARY ENTERIC REFLUX: Moderate biliary gastric reflux CLINICAL: The patient was asymptomatic after Cholecystokinin administration. CONCLUSION: 1. No evidence of cholecystitis 2. Biliary gastric reflux Maulik Dukes MD on December 31, 2017 at 14:25 Board Certified Radiologist. This report was verified electronically.
== END ==
LOC: HRAD 09:55
PROVIDERS: ATTEND Surgery Trauma Surgery
DX: R10.13 Epigastric pain (principal)
CPT/HCPCS: 78227; A9537; J2805